=== PATIENT | female | born 1960 | race Caucasian/White ===

== ENCOUNTER 2022-04-20 10:44 | Outpatient (REF) | payer OTHER, SELFPAY ==
--- NOTE | ~2022-04-20 | XR_ITS ---
EXAMINATION: XR LUMBOSACRAL SPINE CLINICAL INFORMATION: Dorsalgia COMPARISON: None TECHNIQUE: Three views of the lumbosacral spine. FINDINGS: There are 5 lumbar-type vertebrae with diminutive 12th ribs. There is no acute fracture. No significant loss of volume. There is approximately 4 mm of anterolisthesis of L4 relative to L5. There is a broad mild convex left lumbar curve. Difficult to assess the pars interarticulares. There are proliferative changes involving the facets greatest at L4/L5. There is mild disc narrowing at L4/L5 and L5/S1. There are osteophytes anteriorly greatest at L2/L3. There is some narrowing and proliferative change at T9/T10. No suspicious paraspinal abnormality. XR/XR lumbar spine 2-3V IMPRESSION: No acute fracture or subluxation. There is anterolisthesis of L4 relative to L5 and a broad convex left lumbar curve. There is disc narrowing and there are proliferative changes involving the facets greatest at L4/L5.
== END 2022-04-20 10:45 | disposition home or self-care (01) ==
LOC: HO.XRAY 10:44
PROVIDERS: PCP Internal Medicine; Visit Provider Internal Medicine
DX: M54.9 Dorsalgia, unspecified (principal)
CPT/HCPCS: 72100

== ENCOUNTER 2023-05-08 06:15 | Day surgery (SDC) | payer OTHER, SELFPAY ==
[2023-05-04 08:39] VITALS: BMI 27.2
--- NOTE | 2023-05-05 07:56 | MHC.SHP ---
Pre-Procedural Eval Section A Date of Service: 05/05/23 The patient is an INPATIENT: No Changes since office visit: No Cold of Flu in the past 2 weeks, No New Medical Problems, No Changes in Medication and No Patient answered all questions The History & Physical has been completed within 30 days and I have reviewed it.: Yes Section B Chief Complaint: Age-related nuclear cataract, right eye Allergies: Allergies Allergy/AdvReac Type Severity Reaction Status Date / Time ibuprofen [IBUPROFEN] Allergy Mild HIVES Unverified 05/28/20 15:01 Sulfa (Sulfonamide Allergy Mild HIVES Unverified 05/28/20 15:01 Antibiotics) [SULFA(SULFONAMIDE ANTIBIOTICS)] lorazepam [From Ativan] Allergy Unknown Verified 05/04/23 08:12 sulfamethoxazole Allergy Unknown Verified 05/04/23 08:12 [From Bactrim] trimethoprim [From Bactrim] Allergy Unknown Verified 05/04/23 08:12 Plan Diagnosis/Plan: Unchanged I have reviewed the history and physical and performed a pertinent physical examination on my patient. No changes have occurred unless specified. Time Spent With Patient Time: Total time managing care of this patient today ____ minutes.
--- NOTE | 2023-05-05 08:59 | HO.ANESPROP2 ---
Documented by User: Daniela Medellin NP 05/05/23 09:00 HPI - Anesthesia Eval Consult details Narrative: 62yo F for Right Cataract Extraction IOL Insertion Medically optimized No previous cataract on record PMFSH Past Medical History Medical History Adenomatous polyp of colon Allergic rhinitis Asthma Back pain Chronic prescription opiate use Dry eye Dry scalp GERD (gastroesophageal reflux disease) Hair loss HTN (hypertension) Hyperlipidemia Mild aortic stenosis Murmur, cardiac Opiate use Sleep apnea Sparse body hair distribution Surgical History Surgical History H/O colonoscopy H/O tubal ligation History of esophagogastroduodenoscopy (EGD) Hx of cholecystectomy Hx of ovarian cystectomy Status post creation of urethral sling by suprapubic approach Social History Social History Are you a primary manager care management to a significant other at home: No Do you presently have visiting nurse or other home services: No Patient Tobacco Use Status: Never used Tobacco Use of substances other than those prescribed or required for medical reasons: No Have you been hit, kicked, punched, or otherwise hurt by someone within the past year? If so, by whom?: No Advance Directives: No Advance Directives Information Provided: Yes Advance Directives on File: No Recently lost weight without trying: No Eating poorly because of decreased appetite: No Nutrition Risks: No Nutritional Risk Patient : No : No Poor oral hygiene: No Meds Allergies Allergy/AdvReac Type Severity Reaction Status Date / Time ibuprofen [IBUPROFEN] Allergy Mild HIVES Verified 05/08/23 06:52 Sulfa (Sulfonamide Allergy Mild HIVES Verified 05/08/23 06:52 Antibiotics) [SULFA(SULFONAMIDE ANTIBIOTICS)] lorazepam [From Ativan] Allergy Unknown Verified 05/08/23 06:51 sulfamethoxazole Allergy Unknown Verified 05/08/23 06:51 [From Bactrim] trimethoprim [From Bactrim] Allergy Unknown Verified 05/08/23 06:51 Home Medications Medication Instructions Recorded Confirmed Last Taken Type albuterol sulfate 90 mcg/actuation 2 puff inhalation QID PRN 05/04/23 05/04/23 Unknown History aerosol inhaler Shortness Of Breath Or Wheezing fluticasone furoate 100 1 ea inhalation DAILY 05/04/23 05/04/23 Unknown History mcg-vilanterol 25 mcg/dose inhalation powder (Breo Ellipta) fluticasone propionate 50 1 spray intranasal BID 05/04/23 05/04/23 Unknown History mcg/actuation nasal spray,suspension ketoconazole 2 % shampoo 1 appl topical 2XW 05/04/23 05/04/23 Unknown History ketotifen fumarate 0.025 % (0.035 1 drp ophthalmic (eye) BID 05/04/23 05/04/23 Unknown History %) eye drops triamcinolone acetonide 0.5 % 1 appl topical BID 05/04/23 05/04/23 Unknown History topical cream Exam Exam Date and Time: May 05, 2023 0859 Height,Weight and Vital Signs: Height 5 ft 1 in Weight 65.317 kg Assessment and Plan Assessment Anesthesia Assessment: Chart Reviewed Documented by User: Shena Julio MD 05/08/23 07:41 PMFSH Past Medical History Medical History Adenomatous polyp of colon Allergic rhinitis Asthma Back pain Chronic prescription opiate use Dry eye Dry scalp GERD (gastroesophageal reflux disease) Hair loss HTN (hypertension) Hyperlipidemia Mild aortic stenosis Murmur, cardiac Opiate use Sleep apnea Sparse body hair distribution Family History Family history of problems with anesthesia: No Surgical History Surgical History H/O colonoscopy H/O tubal ligation History of esophagogastroduodenoscopy (EGD) Hx of cholecystectomy Hx of ovarian cystectomy Status post creation of urethral sling by suprapubic approach History of Problems with Anesthesia: No Social History Social History Are you a primary manager care management to a significant other at home: No Do you presently have visiting nurse or other home services: No Patient Tobacco Use Status: Never used Tobacco Use of substances other than those prescribed or required for medical reasons: No Have you been hit, kicked, punched, or otherwise hurt by someone within the past year? If so, by whom?: No Advance Directives: No Advance Directives Information Provided: Yes Advance Directives on File: No Recently lost weight without trying: No Eating poorly because of decreased appetite: No Nutrition Risks: No Nutritional Risk Patient : No : No Poor oral hygiene: No Meds Allergies Allergy/AdvReac Type Severity Reaction Status Date / Time ibuprofen [IBUPROFEN] Allergy Mild HIVES Verified 05/08/23 06:52 Sulfa (Sulfonamide Allergy Mild HIVES Verified 05/08/23 06:52 Antibiotics) [SULFA(SULFONAMIDE ANTIBIOTICS)] lorazepam [From Ativan] Allergy Unknown Verified 05/08/23 06:51 sulfamethoxazole Allergy Unknown Verified 05/08/23 06:51 [From Bactrim] trimethoprim [From Bactrim] Allergy Unknown Verified 05/08/23 06:51 Home Medications Medication Instructions Recorded Confirmed Last Taken Type albuterol sulfate 90 mcg/actuation 2 puff inhalation QID PRN 05/04/23 05/04/23 Unknown History aerosol inhaler Shortness Of Breath Or Wheezing fluticasone furoate 100 1 ea inhalation DAILY 05/04/23 05/04/23 Unknown History mcg-vilanterol 25 mcg/dose inhalation powder (Breo Ellipta) fluticasone propionate 50 1 spray intranasal BID 05/04/23 05/04/23 Unknown History mcg/actuation nasal spray,suspension ketoconazole 2 % shampoo 1 appl topical 2XW 05/04/23 05/04/23 Unknown History ketotifen fumarate 0.025 % (0.035 1 drp ophthalmic (eye) BID 05/04/23 05/04/23 Unknown History %) eye drops triamcinolone acetonide 0.5 % 1 appl topical BID 05/04/23 05/04/23 Unknown History topical cream Exam Airway Mallampati Class: II TM Dist: >3cm Neck ROM: Limited Heart: rrr Lungs: cta Assessment and Plan Final Anesthetic Review Family History of Problems with Anesthesia: No History of Problems with Anesthesia: No NPO: Yes ASA Class: III Final Preanesthetic Review: No Changes in Pt Med Stat, Meds/Allgs Chart Reviewed, Consent Obtained/Reviewed and Anes Risks/Benef Reviewed Patient Risk: Low Procedure Risk: Low Anesthetic Plan Anesthetic Plan: MAC: Disposition: Standard PACU
[2023-05-08 06:48] VITALS: BP 157/83; PULSE 71; RESP 20; TEMP 36.6; O2SAT 96
[2023-05-08] MEDS: Tetracaine HCl/PF 0.5% Oph Sol 4 ML DROPS 1 DROP EYE-RIGHT (06:52)
[2023-05-08] MEDS: Cyclopentolate 1 % Ophth Sol 2 ML DRPBTL 1 DROP EYE-RIGHT ×3 (06:52→06:57)
[2023-05-08] MEDS: Lactated Ringers 500 ML 50 ML IV (06:52)
[2023-05-08] MEDS: Phenylephrine HCL 2.5% Oph SoL 2 ML BOTTLE 1 DROP EYE-RIGHT ×3 (06:53→06:58)
[2023-05-08] MEDS: Tropicamide 1 % Ophth Sol 3 ML BTL 1 DROP EYE-RIGHT ×3 (06:53→06:58)
--- NOTE | 2023-05-08 06:57 | HE.PHANOTE ---
Just got off phone with RN who was questioning ibuprofen allergy against ketorlac eye drops, RN and I agreed not to give it until we speak to Dr. Patterson. Currently waiting on provider.
--- NOTE | 2023-05-08 07:01 | PC.NURSE ---
called pharmacy pt allergic to motrin ketorolac on hold they will reach out to dr gonzalez
[2023-05-08 07:58] VITALS: BP 146/72; PULSE 84; RESP 20; TEMP 36.6; O2SAT 100
--- NOTE | 2023-05-08 07:59 | HO.PNOPHT ---
Ophthalmology Procedure Procedure Date of Service: 05/08/23 Ophthalmology Viscoelastic: Yuliet Moreirat Dual Pack Pro Ophthalmology Lenses: TECGAMA [id number] (20) Procedure Notes: PREOPERATIVE DIAGNOSIS: Decreased visual acuity right eye secondary to cataract POSTOPERATIVE DIAGNOSIS: Same PROCEDURE: Right cataract extraction with intraocular lens insertion SURGEON: Ramses Patterson M.D. ANESTHESIA: Topical/MAC ESTIMATED BLOOD LOSS: None COMPLICATIONS: None After obtaining informed consent, the patient was brought to the operating room suite and placed in the supine position. After adequate sedation per anesthesia, topical drops of Tetracaine were given to the right eye. The eye was then prepped and draped in the usual sterile fashion. The operating room microscope was then positioned over the operative eye and a lid speculum placed. A paracentesis was created. Viscoelastic was then instilled into the anterior chamber. A three plane incision was then created temporally, utilizing a 2.85 mm keratome. Capsulotomy forceps were then utilized to create a circular tear capsulotomy. Hydrodissection and hydrodelineation were carried out until adequate mobilization of the nucleus occurred. Phacoemulsification was then utilized to remove the dense central nucleus followed by removal of the cortical material utilizing the automated aspiration irrigation unit. Viscoelastic was instilled into the posterior capsular bag followed by placement of a posterior chamber intraocular lens without difficulty. The residual Viscoelastic was then removed utilizing the automated IA machine. The wound was checked and found to be watertight. The patient tolerated the procedure well and the lid speculum was removed. Intracameral injection of Vigamox 0.1 mL followed by a subtenon injection of Kenalog-40 0.2 mL were administered. The patient will be seen in the a.m.
== END 2023-05-08 08:17 | disposition home or self-care (01) ==
PROVIDERS: PCP Internal Medicine; Visit Provider Ophthalmology
PROC: (CPT 66985; principal; 2023-05-08 07:30)
DX: H25.11 Age-related nuclear cataract, right eye (principal); H52.4 Presbyopia; H04.123 Dry eye syndrome of bilateral lacrimal glands; H17.89 Other corneal scars and opacities; H11.153 Pinguecula, bilateral; H35.09 Other intraretinal microvascular abnormalities; I10 Essential (primary) hypertension; E78.5 Hyperlipidemia, unspecified; M25.59 Pain in other specified joint; J45.909 Unspecified asthma, uncomplicated; M54.50 Low back pain, unspecified; G89.29 Other chronic pain; G47.33 Obstructive sleep apnea (adult) (pediatric); Z88.1 Allergy status to other antibiotic agents; Z79.51 Long term (current) use of inhaled steroids; Z79.899 Other long term (current) drug therapy; Z79.891 Long term (current) use of opiate analgesic; Z99.89 Dependence on other enabling machines and devices
CPT/HCPCS: 66984; J3010; J3301; V2632

== ENCOUNTER 2023-05-22 06:02 | Day surgery (SDC) | payer OTHER, SELFPAY ==
[2023-05-04 08:42] VITALS: BMI 27.2
--- NOTE | 2023-05-19 07:39 | MHC.SHP ---
Pre-Procedural Eval Section A Date of Service: 05/19/23 The patient is an INPATIENT: No Changes since office visit: No Cold of Flu in the past 2 weeks, No New Medical Problems, No Changes in Medication and No Patient answered all questions The History & Physical has been completed within 30 days and I have reviewed it.: Yes Section B Chief Complaint: Age-related nuclear cataract, left eye Allergies: Allergies Allergy/AdvReac Type Severity Reaction Status Date / Time ibuprofen [IBUPROFEN] Allergy Mild HIVES Verified 05/08/23 06:52 Sulfa (Sulfonamide Allergy Mild HIVES Verified 05/08/23 06:52 Antibiotics) [SULFA(SULFONAMIDE ANTIBIOTICS)] lorazepam [From Ativan] Allergy Unknown Verified 05/08/23 06:51 sulfamethoxazole Allergy Unknown Verified 05/08/23 06:51 [From Bactrim] trimethoprim [From Bactrim] Allergy Unknown Verified 05/08/23 06:51 Plan Diagnosis/Plan: Unchanged I have reviewed the history and physical and performed a pertinent physical examination on my patient. No changes have occurred unless specified. Time Spent With Patient Time: Total time managing care of this patient today ____ minutes.
--- NOTE | 2023-05-19 12:04 | P.CONAN_ITS ---
Documented by User: Daniela Medellin NP 05/19/23 12:04 HPI - Anesthesia Eval Consult details Narrative: 62yo F for Left Cataract Extraction IOL Insertion PCP cleared Right eye done 05/08/23 with TIVA: Fent 50 PMFSH Past Medical History Medical History Murmur, cardiac Sparse body hair distribution Opiate use Chronic prescription opiate use Dry scalp Hair loss Adenomatous polyp of colon Sleep apnea GERD (gastroesophageal reflux disease) Hyperlipidemia Dry eye Back pain Asthma Mild aortic stenosis Allergic rhinitis HTN (hypertension) Family History Family history of problems with anesthesia: No Surgical History Surgical History Hx of cholecystectomy H/O tubal ligation Status post creation of urethral sling by suprapubic approach Hx of ovarian cystectomy History of esophagogastroduodenoscopy (EGD) H/O colonoscopy History of Problems with Anesthesia: No Social History Social History Are you a primary health care recruiter to a significant other at home: No Do you presently have visiting nurse or other home services: No Patient Tobacco Use Status: Never used Tobacco Use of substances other than those prescribed or required for medical reasons: No Have you been hit, kicked, punched, or otherwise hurt by someone within the past year? If so, by whom?: No Are you DNR?: No Advance Directives: No Advance Directives Information Provided: Yes Advance Directives on File: No Recently lost weight without trying: No Eating poorly because of decreased appetite: No Nutrition Risks: No Nutritional Risk Patient : No : No Poor oral hygiene: No Meds Allergies Allergy/AdvReac Type Severity Reaction Status Date / Time ibuprofen [IBUPROFEN] Allergy Mild HIVES Verified 05/08/23 06:52 Sulfa (Sulfonamide Allergy Mild HIVES Verified 05/08/23 06:52 Antibiotics) [SULFA(SULFONAMIDE ANTIBIOTICS)] lorazepam [From Ativan] Allergy Unknown Verified 05/08/23 06:51 sulfamethoxazole Allergy Unknown Verified 05/08/23 06:51 [From Bactrim] trimethoprim [From Bactrim] Allergy Unknown Verified 05/08/23 06:51 Home Medications Medication Instructions Recorded Confirmed Last Taken Type albuterol sulfate 90 mcg/actuation 2 puff inhalation QID PRN 05/04/23 05/22/23 Unknown History aerosol inhaler Shortness Of Breath Or Wheezing fluticasone furoate 100 1 ea inhalation DAILY 05/04/23 05/22/23 Unknown History mcg-vilanterol 25 mcg/dose inhalation powder (Breo Ellipta) fluticasone propionate 50 1 spray intranasal BID 05/04/23 05/22/23 Unknown History mcg/actuation nasal spray,suspension ketoconazole 2 % shampoo 1 appl topical 2XW 05/04/23 05/22/23 Unknown History ketotifen fumarate 0.025 % (0.035 1 drp ophthalmic (eye) BID 05/04/23 05/22/23 Unknown History %) eye drops triamcinolone acetonide 0.5 % 1 appl topical BID 05/04/23 05/04/23 Unknown History topical cream Exam Exam Date and Time: May 19, 2023 1204 Height,Weight and Vital Signs: Height 5 ft 1 in Weight 65.317 kg Assessment and Plan Assessment Anesthesia Assessment: Chart Reviewed Final Anesthetic Review Family History of Problems with Anesthesia: No History of Problems with Anesthesia: No Documented by User: Juany Cramer MD 05/22/23 07:43 [facility] Active Problems Active Problems: Asthma. Stable MAIA. Uses CPAP Past Medical History Medical History Murmur, cardiac Sparse body hair distribution Opiate use Chronic prescription opiate use Dry scalp Hair loss Adenomatous polyp of colon Sleep apnea GERD (gastroesophageal reflux disease) Hyperlipidemia Dry eye Back pain Asthma Mild aortic stenosis Allergic rhinitis HTN (hypertension) Surgical History Surgical History Hx of cholecystectomy H/O tubal ligation Status post creation of urethral sling by suprapubic approach Hx of ovarian cystectomy History of esophagogastroduodenoscopy (EGD) H/O colonoscopy Social History Social History Are you a primary health care recruiter to a significant other at home: No Do you presently have visiting nurse or other home services: No Patient Tobacco Use Status: Never used Tobacco Use of substances other than those prescribed or required for medical reasons: No Have you been hit, kicked, punched, or otherwise hurt by someone within the past year? If so, by whom?: No Are you DNR?: No Advance Directives: No Advance Directives Information Provided: Yes Advance Directives on File: No Recently lost weight without trying: No Eating poorly because of decreased appetite: No Nutrition Risks: No Nutritional Risk Patient : No : No Poor oral hygiene: No Meds Allergies Allergy/AdvReac Type Severity Reaction Status Date / Time ibuprofen [IBUPROFEN] Allergy Mild HIVES Verified 05/08/23 06:52 Sulfa (Sulfonamide Allergy Mild HIVES Verified 05/08/23 06:52 Antibiotics) [SULFA(SULFONAMIDE ANTIBIOTICS)] lorazepam [From Ativan] Allergy Unknown Verified 05/08/23 06:51 sulfamethoxazole Allergy Unknown Verified 05/08/23 06:51 [From Bactrim] trimethoprim [From Bactrim] Allergy Unknown Verified 05/08/23 06:51 Home Medications Medication Instructions Recorded Confirmed Last Taken Type albuterol sulfate 90 mcg/actuation 2 puff inhalation QID PRN 05/04/23 05/22/23 Unknown History aerosol inhaler Shortness Of Breath Or Wheezing fluticasone furoate 100 1 ea inhalation DAILY 05/04/23 05/22/23 Unknown History mcg-vilanterol 25 mcg/dose inhalation powder (Breo Ellipta) fluticasone propionate 50 1 spray intranasal BID 05/04/23 05/22/23 Unknown History mcg/actuation nasal spray,suspension ketoconazole 2 % shampoo 1 appl topical 2XW 05/04/23 05/22/23 Unknown History ketotifen fumarate 0.025 % (0.035 1 drp ophthalmic (eye) BID 05/04/23 05/22/23 Unknown History %) eye drops triamcinolone acetonide 0.5 % 1 appl topical BID 05/04/23 05/04/23 Unknown History topical cream Exam Height,Weight and Vital Signs: Height 5 ft 1 in Weight 65.317 kg Vital Signs Temp Pulse Resp BP Pulse Ox O2 Del Method 05/22/23 06:22 96.2 F L 62 18 156/64 H 99 Room Air Airway Mallampati Class: II TM Dist: >3cm Neck ROM: Full Loose/Missing/Broken Teeth: No (Denies broken, loose, missing teeth) Heart: RRR + ?systolic murmur Lungs: CTAB Assessment and Plan Assessment Anesthesia Assessment: Anesthesia Plan Discussed Final Anesthetic Review NPO: Yes ASA Class: III Final Preanesthetic Review: No Changes in Pt Med Stat, Meds/Allgs Chart Reviewed, Consent Obtained/Reviewed and Anes Risks/Benef Reviewed Patient Risk: Intermediate Procedure Risk: Low Assessment/Block/Sedation in SS: Assess/Block/Sedation-SS Anesthetic Plan Anesthetic Plan: MAC: Disposition: Standard PACU
[2023-05-22 06:22] VITALS: BP 156/64; PULSE 62; RESP 18; TEMP 35.7; O2SAT 99; BMI 27.2
[2023-05-22] MEDS: Tetracaine HCl/PF 0.5% Oph Sol 4 ML DROPS 1 DROP EYE-LEFT (06:36)
[2023-05-22] MEDS: Phenylephrine HCL 2.5% Oph SoL 2 ML BOTTLE 1 DROP EYE-LEFT ×3 (06:37→06:45)
[2023-05-22] MEDS: Tropicamide 1 % Ophth Sol 3 ML BTL 1 DROP EYE-LEFT ×3 (06:37→06:45)
[2023-05-22] MEDS: Cyclopentolate 1 % Ophth Sol 2 ML DRPBTL 1 DROP EYE-LEFT ×3 (06:37→06:45)
[2023-05-22] MEDS: Ketorolac Tromethamine 0.5% Op 5 ML DROPS 1 DROP EYE-LEFT ×3 (06:37→06:45)
[2023-05-22] MEDS: Lactated Ringers 500 ML 50 ML IV (06:49)
--- NOTE | 2023-05-22 07:25 | HO.PNOPHT ---
Ophthalmology Procedure Procedure Date of Service: 05/22/23 Ophthalmology Viscoelastic: Healtello Moreirat Dual Pack Pro Ophthalmology Lenses: TECGAMA [id number] (21) Procedure Notes: PREOPERATIVE DIAGNOSIS: Decreased visual acuity left eye secondary to cataract POSTOPERATIVE DIAGNOSIS: Same PROCEDURE: Left cataract extraction with intraocular lens insertion SURGEON: Ramses Patterson M.D. ANESTHESIA: Topical/MAC ESTIMATED BLOOD LOSS: None COMPLICATIONS: None After obtaining informed consent, the patient was brought to the operation room suite and placed in the supine position. After adequate sedation per anesthesia, topical drops of Tetracaine were given to the left eye. The eye was then prepped and draped in the usual sterile fashion. The operating room microscope was then positioned over the operative eye and a lid speculum placed. A paracentesis was created. Viscoelastic was then instilled into the anterior chamber. A three plane incision was then created temporally, utilizing a 2.85 mm keratome. Capsulotomy forceps were then utilized to create a circular tear capsulotomy. Hydrodissection and hydrodelineation were carried out until adequate mobilization of the nucleus occurred. Phacoemulsification was then utilized to remove the dense central nucleus followed by removal of the cortical material utilizing the automated aspiration irrigation unit. Viscoat elastic was instilled into the posterior capsular bag followed by placement of a posterior chamber intraocular lens without difficulty. The residual Viscoat elastic was then removed utilizing the automated IA machine. The wound was check and found to be watertight. The patient tolerated the procedure well and the lid speculum was removed. Intracameral injection of Vigamox 0.1 mL followed by a subtenon injection of Kenalog-40 0.2 mL were administered. The patient will be seen in the a.m.
[2023-05-22 08:02] VITALS: BP 140/66; PULSE 71; RESP 13; TEMP 36.2; O2SAT 98
== END 2023-05-22 08:06 | disposition home or self-care (01) ==
PROVIDERS: PCP Internal Medicine; Visit Provider Ophthalmology
PROC: (CPT 66985; principal; 2023-05-22 07:30)
DX: H25.12 Age-related nuclear cataract, left eye (principal); H54.7 Unspecified visual loss; J45.909 Unspecified asthma, uncomplicated; K21.9 Gastro-esophageal reflux disease without esophagitis; I10 Essential (primary) hypertension; E78.5 Hyperlipidemia, unspecified; G47.30 Sleep apnea, unspecified; Z99.89 Dependence on other enabling machines and devices; Z79.899 Other long term (current) drug therapy
CPT/HCPCS: 66984; J2250; J3010; J3301; V2632